=== PATIENT | female | born 1990 ===

== ENCOUNTER → 2022-02-24 16:55 | Outpatient (CLI) | payer OTHER, SELFPAY ==
--- NOTE | ~2022-02-24 | MR_ITS ---
EXAMINATION: MR shoulder LT wo con DATE: 02/24/2022 17:57 INDICATION: Left shoulder pain. TECHNIQUE: Magnetic resonance imaging (MRI) of the left shoulder was performed without intravenous co ntrast. Sequences included axial PD-weighted FS FSE, coronal oblique PD-weighted FS FSE and T2-weight ed FS FSE, and sagittal oblique T2-weighted FS FSE and T1-weighted FSE. COMPARISON: None. FINDINGS: Coracoacromial arch: The acromion undersurface is curved in morphology (type II). The acromial clavicular joint is normal. There is mild subacromial/subdeltoid bursitis. Rotator cuff: Supraspinatus tendon is normal. There is mild infraspinatus tendinopathy. Teres minor tendon is terence l. Subscapularis tendon is normal. There is mild fatty atrophy of subscapularis muscle belly. Biceps tendon and glenoid labrum: Biceps tendon is in the bicipital groove. Intra-articular biceps tendon is normal. The glenoid labrum is normal. Fluid: There is no glenohumeral joint effusion. Bones/cartilage: Glenoid cartilage is normal. Humeral head cartilage is normal. IMPRESSION: 1. Mild infraspinatus tendinopathy. No tear. 2. Mild subacromial/subdeltoid bursitis. Reviewed, dictated and finalized at location A.
== END ==
PROVIDERS: PCP Pediatrics; Visit Provider Nurse Practitioner Family
DX: M75.52 Bursitis of left shoulder (principal)
CPT/HCPCS: 73221

== ENCOUNTER → 2022-10-14 16:55 | Outpatient (CLI) | payer OTHER, SELFPAY ==
--- NOTE | ~2022-10-14 | MR_ITS ---
MRI of the right knee Clinical history: Pain Technique: Coronal proton density and proton density-weighted images, sagittal proton-density and T2 fat-sat images, and axial proton-density fat-saturated images were acquired. Findings: Anterior and posterior cruciate ligaments are intact. Medial collateral ligament and the la teral collateral ligament complex are intact. Popliteus tendon is intact. Medial and lateral menisci are intact, without evidence of tear. There is orthopedic fixation hardware at the patella with associated susceptibility artifact. Patella r articular cartilage is poorly evaluated due to artifact. Articular cartilage in the range of the kn ee appears to be relatively well-preserved. There is extensive marrow edema throughout the medial tib ial plateau region. There is probable focal small irregular T1 hypointensity in the proximal, medial tibia. Visualized extensor mechanism is intact. No joint effusion. Minimal Berger's cyst present. Impression: Extensive marrow edema in the medial tibial plateau region with focal irregular linear T1 hypointensi ty. Findings could reflect microtrabecular fracture/bone contusion versus other reactive marrow edema . No tibial plateau fracture evident otherwise. Developing subchondral insufficiency fracture felt to be less likely given the location of the T1 hypointensity and lack of overlying meniscal tear or cho ndromalacia. Prior patellar surgery. Minimal Berger's cyst. Reviewed, dictated and finalized at location . Impression: Extensive marrow edema in the medial tibial plateau region with focal irregular linear T1 hypointensity. Findings could reflect microtrabecular fracture/bone contusion versus other reactive marrow edema. No tibial plateau fracture eviden t otherwise. Developing subchondral insufficiency fracture felt to be less like ly given the location of the T1 hypointensity and lack of overlying meniscal te ar or chondromalacia. Prior patellar surgery. Minimal Berger's cyst.
== END ==
PROVIDERS: PCP Pediatrics
DX: M25.561 Pain in right knee (principal)
CPT/HCPCS: 73721